=== PATIENT | female | born 1990 | race Caucasian/White ===

== ENCOUNTER 2017-09-10 11:54 | Emergency (ER) | payer OTHER, BC ==
[2017-09-10 12:19] LABS: CONTROL LINE UCG INT CTR LINE PRESENT; URINE PREG TEST POSITIVE (NEGATIVE)
[2017-09-10 12:21] LABS: KETONE, URINE AUTO RFX NEGATIVE (NEGATIVE); LEUKOCYTE ESTERASE UR AUTO RFX NEGATIVE (NEGATIVE); NITRITE, URINE AUTO RFX NEGATIVE (NEGATIVE); RBC, URINE AUTO RFX 2 /HPF (0-3); SPECIFIC GRAVITY UR AUTO RFX 1.014 (1.002-1.035); SQUAM EPITHELIAL CELL UR AURFX 1 /HPF (0-6); WBC, URINE AUTO RFX 2 /HPF (0-3)
[2017-09-10 15:24] LABS: HEMATOCRIT 41.4 % (36.0-47.0); HEMOGLOBIN 13.8 g/dl (12.0-15.5); MEAN CORPUSCULAR HEMOGLOBIN 27.9 pg (27.0-33.0); MEAN CORPUSCULAR HGB CONC 33.3 g/dl (32.0-36.5); MEAN CORPUSCULAR VOLUME 83.6 fl (80.0-96.0); PLATELET COUNT, AUTOMATED 303 10^3/uL (150-450); RED BLOOD COUNT 4.95 10^6/uL (4.00-5.40); RED CELL DISTRIBUTION WIDTH 13.1 % (11.5-14.5); WHITE BLOOD COUNT 11.5 10^3/uL (4.0-10.0)
[2017-09-10 15:41] LABS: CONTROL LINE HCG INT CTR LINE PRESENT; HCG, SERUM QUALITATIVE POSITIVE (NEGATIVE)
[2017-09-10 16:34] LABS: HCG, SERUM QUANTITATIVE 62622 MIU/ML
[2017-09-10 17:47] LABS: CHLAMYDIA DNA AMPLIFICATION NEGATIVE (NEGATIVE); GC DNA AMPLIFICATION NEGATIVE (NEGATIVE)
== END 2017-09-10 17:23 | disposition home or self-care (01) ==
LOC: M ED 11:54
DX: O26.851 Spotting complicating pregnancy, first trimester (principal); Z3A.01 Less than 8 weeks gestation of pregnancy
CPT/HCPCS: 76801

== ENCOUNTER → 2017-12-08 | Outpatient (CLI) | payer OTHER | LOC: M WHC 10:55 | DX: Z34.82 Encounter for supervision of other normal pregnancy, second trimester (principal); Z36.89 Encounter for other specified antenatal screening; Z3A.19 19 weeks gestation of pregnancy | CPT/HCPCS: 76811 ==

== ENCOUNTER → 2018-01-23 | Outpatient (CLI) | payer OTHER ==
[2018-01-23 18:44] LABS: BASO % 0.3 % (0.0-1.0); EOS # 0.1 10^3/uL (0.0-0.50); EOS % 0.8 % (0.0-3.0); HEMOGLOBIN 10.6 g/dl (12.0-15.5); IMMATURE GRANULOCYTE % 0.5 % (0-3.0); LYMPH # 1.8 10^3/uL (1.5-6.5); MEAN CORPUSCULAR HEMOGLOBIN 28.2 pg (27.0-33.0); MEAN CORPUSCULAR HGB CONC 32.1 g/dl (32.0-36.5); MEAN CORPUSCULAR VOLUME 87.8 fl (80.0-96.0); MONO # 0.6 10^3/uL (0.0-0.8); MONO % 4.9 % (0.0-5.0); NEUTROPHILS # 9.4 10^3/uL (1.8-7.7); NEUTROPHILS % 78.5 % (36.0-66.0); PLATELET COUNT, AUTOMATED 288 10^3/uL (150-450); RED BLOOD COUNT 3.76 10^6/uL (4.00-5.40); RED CELL DISTRIBUTION WIDTH 13.4 % (11.5-14.5); WHITE BLOOD COUNT 11.9 10^3/uL (4.0-10.0)
[2018-01-23 18:56] LABS: GLUCOSE CHALLENGE TEST 1 HOUR 132 MG/DL (LESS THAN 140)
== END ==
LOC: M WUC 11:02
DX: Z34.02 Encounter for supervision of normal first pregnancy, second trimester (principal); Z36.89 Encounter for other specified antenatal screening

== ENCOUNTER → 2018-01-27 | Outpatient (CLI) | payer OTHER ==
[2018-01-27 08:43] LABS: GLUCOSE, FASTING 89 MG/DL (LESS THAN 95)
[2018-01-27 09:58] LABS: 1 HR GLUCOSE 151 MG/DL (LESS THAN 180)
[2018-01-27 10:59] LABS: 2 HR GLUCOSE 116 MG/DL (LESS THAN 155)
[2018-01-27 11:44] LABS: 3 HR GLUCOSE 116 MG/DL (LESS THAN 140)
== END ==
LOC: M LAB 07:55
DX: Z34.02 Encounter for supervision of normal first pregnancy, second trimester (principal); Z3A.00 Weeks of gestation of pregnancy not specified
CPT/HCPCS: 82951

== ENCOUNTER → 2018-03-26 | Outpatient (REF) | payer BC, OTHER ==
[~2018-03-26] MED LIST: KEFL500C17 PO; MAPA500T17 PO; PRENTAB31 PO; ZANTTAB PO
== END ==
LOC: M SFHCPLAZ 17:01
PROVIDERS: ATTEND Dermatology
DX: C44.320 Squamous cell carcinoma of skin of unspecified parts of face (principal)

== ENCOUNTER → 2018-04-03 | Outpatient (REF) | payer OTHER ==
[~2018-04-03] MED LIST changes: -MAPA500T17 PO; -ZANTTAB PO
== END ==
LOC: M LAB REF 13:10
PROVIDERS: ATTEND Advanced Practice Midwife
DX: Z34.03 Encounter for supervision of normal first pregnancy, third trimester (principal)

== ENCOUNTER → 2018-04-23 | Outpatient (REF) | payer OTHER ==
[~2018-04-23] MED LIST changes: +COLA100C5 PO; +IBUP-1114 PO; +MAPA500T2 PO; +NUPE1OIN2 TOP; +ZANTTAB PO
[2018-04-23 14:48] LABS: ALT/SGPT 10 U/L (12-78); BILIRUBIN,TOTAL 0.2 MG/DL (0.2-1.0); CREATININE FOR GFR 0.63 MG/DL (0.55-1.30); GLOMERULAR FILTRATION RATE > 60.0 (>60); LDH LACTATE DEHYDROGENASE 158 U/L (84-246); URIC ACID 5.2 MG/DL (2.6-6.0)
[2018-04-23 14:51] LABS: HEMATOCRIT 33.8 % (36.0-47.0); HEMOGLOBIN 10.9 g/dl (12.0-15.5); MEAN CORPUSCULAR HEMOGLOBIN 26.4 pg (27.0-33.0); MEAN CORPUSCULAR HGB CONC 32.2 g/dl (32.0-36.5); MEAN CORPUSCULAR VOLUME 81.8 fl (80.0-96.0); PLATELET COUNT, AUTOMATED 257 10^3/uL (150-450); RED BLOOD COUNT 4.13 10^6/uL (4.00-5.40); WHITE BLOOD COUNT 11.6 10^3/uL (4.0-10.0)
== END ==
LOC: M SMT 13:16
PROVIDERS: ATTEND Advanced Practice Midwife
DX: Z36.89 Encounter for other specified antenatal screening (principal)

== ENCOUNTER → 2018-04-23 | Outpatient (REF) | payer OTHER ==
[2018-04-23 15:38] LABS: TOTAL PROTEIN,RANDOM URINE 26.3 MG/DL (0.0-12.0)
== END ==
LOC: M LAB REF 13:53
PROVIDERS: ATTEND Advanced Practice Midwife
DX: Z36.89 Encounter for other specified antenatal screening (principal)

== ENCOUNTER 2018-04-24 10:57 | Inpatient (IN) | payer OTHER ==
[~2018-04-24] VITALS: Ht 165.1 cm; Wt 104.5 kg
[2018-04-24] VITALS (14 sets, daily range): BP systolic 114–157; BP diastolic 63–87
[~2018-04-24 10:57] MED LIST changes: -COLA100C5 PO; -IBUP-1114 PO; -MAPA500T2 PO; -NUPE1OIN2 TOP; -ZANTTAB PO
[2018-04-24] MEDS ORDERED: ZANTTAB PO (12:24)
[2018-04-24] MEDS ORDERED: MAPA500T2 PO (12:24)
--- NOTE | 2018-04-24 12:26 | HPEPDOC ---
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 BREAST: . ABDOMEN: Gravid and non-tender to touch. FETUS: Is vertex (VTX) by sterile vaginal examination (SVE), fetus is vertex (VTX) by Niraj. HEART RATE: Regular rate and rhythm. LUNGS: Clear to auscultation (CTA). EXTREMITIES: No edema. No clonus. Deep tendon reflexes (DTRs) + 2. Laboratory Data 24H LABS Laboratory Tests 2 04/24/18 11:41: Serology Scanned Report Hepatitis B Testing Pertinent Laboratoy Data Blood Type: A+ RBC Antibody Screen: Negative HIV: Negative Hepatitis B: Negative Hepatitis C: Negative Rapid Plasma Reagin: Nonreactive Rubella: Immune Chlamydia/Gonorrhea: Negative Group B Streptococcus: Positive Quad Screen Test: Declined Glucose Tolerance Test: 132 (3hr 89,151,116,116) Anatomy Ultrasound Ultrasound Date: Dec 08, 2017 Placenta Location: Posterior Normal Anatomy: Yes Placenta Previa: No Estimated Weight (grams): 331 Other Ultrasounds 09/22/17 dating 8w4d Steroid Therapy Steroid Therapy: No Vaginal Examination Dilation: 1cm Effacement: 80% Station: -3 Cervical Consistency: Medium Cervical Position: Posterior Assessment Heart Rate (FHR): 150 Variability: Moderate Accelerations: Positive Tocometer Contractions: Yes Frequency: irregular Strength: palpated as mild Assessment/Plan Assessment Hannah is a 28-year-old (G)1 para (P)0-0-0-0 at 39+2 weeks by 8-week ultrasound. Presents to Labor and Delivery (L&D) per consult Dr Hathaway for induction due to gestational hypertension. Denies regular UC, LOF, bleeding. Fetus is active. Plan Admit and orient per consult Dr Hathaway Caterer'S Aide and consent. Diet: regular. Group B Streptococcus (GBS) positive, treat when in labor. Labs and intravenous (IV) per unit protocol. Counseled on misoprostol, Pitocin and induction of labor (IOL). Saline lock Pt considering epidural Anticipate normal spontaneous delivery (). C-S as appropriate. Jayla Orozco CNM Apr 24, 2018 12:26
[2018-04-24] MEDS ORDERED: miSOPROStol 50 MCG 1/2 TAB (S0191) PO SCH (13:00)
[2018-04-24 13:28] LABS: HEMATOCRIT 33.1 % (36.0-47.0); MEAN CORPUSCULAR HEMOGLOBIN 27.2 pg (27.0-33.0); MEAN CORPUSCULAR HGB CONC 33.2 g/dl (32.0-36.5); MEAN CORPUSCULAR VOLUME 81.9 fl (80.0-96.0); PLATELET COUNT, AUTOMATED 244 10^3/uL (150-450); RED BLOOD COUNT 4.04 10^6/uL (4.00-5.40); WHITE BLOOD COUNT 11.3 10^3/uL (4.0-10.0)
[2018-04-24 13:35] LABS: CREATININE,RANDOM URINE 70.1 MG/DL; TOTAL PROTEIN,RANDOM URINE 19.4 MG/DL (0.0-12.0)
[2018-04-24 13:58] LABS: ALT/SGPT 11 U/L (12-78); BILIRUBIN,TOTAL 0.2 MG/DL (0.2-1.0); CREATININE FOR GFR 0.63 MG/DL (0.55-1.30); GLOMERULAR FILTRATION RATE > 60.0 (>60); LDH LACTATE DEHYDROGENASE 183 U/L (84-246); URIC ACID 5.2 MG/DL (2.6-6.0)
[2018-04-24] MEDS ORDERED: LACTATED RINGER'S 1000 ML IV ONE (16:45)
[2018-04-24] MEDS: LR 1,000 ML IV SCH ×3 (17:48→22:49)
[2018-04-24] MEDS ORDERED: OXYTOCIN DRIP 30 UNITS in APPROPRIATE DILUENT 1 EA IV SCH (18:00)
[2018-04-24] MEDS ORDERED: hydrOXYzine 50 MG TAB PO SCH (21:00)
[2018-04-25] VITALS (42 sets, daily range): BP systolic 105–162; BP diastolic 58–92
[2018-04-25] MEDS ORDERED: PROMETHAZINE INJ 25 MG/ML VIAL (J2550) IV ONE (00:30)
[2018-04-25] MEDS ORDERED: BUTORPHANOL 2 MG/ML INJ (J0595) IV ONE (00:30)
[2018-04-25] MEDS ORDERED: PENICILLIN G POTASSIUM IV 5 MU in D5W MINI-BAG PLUS 100 ML IV STA (01:20)
[2018-04-25] MEDS: LR 1,000 ML IV SCH (01:48)
[2018-04-25] MEDS ORDERED: FENTANYL 2MCG/ML ROPIVACAINE 0.2% IN 0.9% NACL 100ML IVBAG As Ordered ONE (02:04)
--- NOTE | 2018-04-25 03:10 | IPNPDOC ---
Text Note Date of Service The patient was seen on 04/25/18. NOTE Comfortable with epidural SROM clear fluid 0103 Pitocin @ 2mu UC 2-3 minutes apart FH 140, moderate variability, Cat I SVE 9/100/0 Labor down VS,Fishbone, I+O VS, Fishbone, I+O Laboratory Tests 04/24/18 12:14 Red Blood Count 4.04, Mean Corpuscular Volume 81.9, Mean Corpuscular Hemoglobin 27.2, Mean Corpuscular Hemoglobin Concent 33.2, Red Cell Distribution Width 14.8 H, Aspartate Amino Transf (AST/SGOT) 13, Alanine Aminotransferase (ALT/SGPT) 11 L, Lactate Dehydrogenase 183, Total Bilirubin 0.2, Uric Acid 5.2 Vital Signs Date Time Temp Pulse Resp B/P (MAP) Pulse Ox O2 Delivery O2 Flow Rate FiO2 04/25/18 01:20 18 04/25/18 00:47 81 109/63 (78) 04/24/18 23:17 99.0 I&O- Last 24 Hours up to 6 AM 04/25/18 06:00 Output Total 400 ml Balance -400 ml Jayla Orozco CNM Apr 25, 2018 03:10
[2018-04-25] MEDS ORDERED: ePHEDrine SULFATE 25 MG/5 ML(5MG/ML) SYRINGE IV PRN (03:30)
[2018-04-25] MEDS ORDERED: LACTATED RINGER'S 1000 ML IV PRN (03:30)
[2018-04-25] MEDS ORDERED: EPIDURAL/PCA KEYS XX PRN (03:30)
[2018-04-25] MEDS ORDERED: ONDANSETRON 4MG/2ML VIAL (J2405) IV PRN ×2 (03:30→10:15)
[2018-04-25] MEDS ORDERED: EPIDURAL COMMENT XX SCH (03:30)
[2018-04-25] MEDS ORDERED: FENTANYL/ROPIVACAINE/NACL BAG 100 ML EPIDURAL SCH (03:30)
[2018-04-25] MEDS ORDERED: diphenhydrAMINE INJ 50MG/ML VIAL (J1200) IV PRN (03:30)
[2018-04-25] MEDS ORDERED: NALOXONE INJ 0.4 MG/1 ML VIAL (J2310) IV PRN (03:30)
[2018-04-25] MEDS ORDERED: REFRIGERATOR IV KEYS XX PRN (03:30)
[2018-04-25] MEDS: PENICILLIN G POTASSIUM IV 2.5 MU in APPROPRIATE DILUENT 1 EA IV SCH ×2 (05:00→09:00)
--- NOTE | 2018-04-25 06:20 | IPNPDOC ---
Text Note Date of Service The patient was seen on 04/25/18. NOTE Feeling pressure UC 2-4 minutes x 45-60 seconds FH 145, Moderate variability. Attempt to push x1, decel to 100 with slow recovery and poor maternal effort Labor down until stronger urge to push. VS,Fishbone, I+O VS, Fishbone, I+O Laboratory Tests 04/24/18 12:14 Red Blood Count 4.04, Mean Corpuscular Volume 81.9, Mean Corpuscular Hemoglobin 27.2, Mean Corpuscular Hemoglobin Concent 33.2, Red Cell Distribution Width 14.8 H, Aspartate Amino Transf (AST/SGOT) 13, Alanine Aminotransferase (ALT/SGPT) 11 L, Lactate Dehydrogenase 183, Total Bilirubin 0.2, Uric Acid 5.2 Vital Signs Date Time Temp Pulse Resp B/P (MAP) Pulse Ox O2 Delivery O2 Flow Rate FiO2 04/25/18 05:41 77 18 130/77 (94) 04/25/18 04:11 97.7 I&O- Last 24 Hours up to 6 AM 04/25/18 06:00 Output Total 700 ml Balance -700 ml Jayla Orozco CNM Apr 25, 2018 06:20
[2018-04-25] MEDS ORDERED: LR 1,000 ML IV SCH (10:11)
[2018-04-25] MEDS ORDERED: OXYTOCIN DRIP 30 UNITS in APPROPRIATE DILUENT 1 EA IV SCH (10:11)
[2018-04-25] MEDS ORDERED: PROMETHAZINE 25 MG TAB PO PRN (10:15)
[2018-04-25] MEDS ORDERED: DOCUSATE SODIUM 100 MG CAP PO PRN (10:15)
[2018-04-25] MEDS ORDERED: DIBUCAINE 1% OINTMENT 30GM TOP PRN (10:15)
[2018-04-25] MEDS ORDERED: ACETAMINOPHEN 500 MG TAB PO PRN (10:15)
[2018-04-25] MEDS ORDERED: MEASLES,MUMPS,RUBELLA VACCINE INJ (MMR-II) (90707) SC SCH (10:15)
[2018-04-25] MEDS ORDERED: RHOGAM 300 MCG (1500 IU) INJ (J2790) IM SCH (10:15)
--- NOTE | 2018-04-25 10:17 | NUR ---
Delivery note Spontaneous vaginal delivery Estimated gestational age at delivery: 39+2 weeks The active phase and second stage of labor progressed in normal fashion with epidural anesthesia. Patient received Pitocin labor augmentation. She received a full course of GBS prophylaxis. Pt had screened GBS+. The head delivered left occiput anterior and restituted left occiput transverse. A loose nuchal cord was noted. The anterior shoulder delivered with gentle downward guidance and the remainder of the body delivered with ease. The nuchal cord was reduced. Cord clamping was delayed for approximately 1 minute after delivery. After doubly clamping the cord, I cut the cord. The was placed on the patient's chest for immediate bonding. data: Apgars 8 and 9. weight 3210 grams 7 pounds, 1 ounces. Time of delivery: 940. Sex: Male. Joey Bejarano. The third stage of labor was actively managed with a bolus of IV Pitocin (30 units in 500 mL of normal saline). The placenta delivered completely intact with no missing cotyledons at 0945. A three-vessel cord with a central insertion was noted. After delivery of the placenta, the uterine fundus was approximately 2 cm below the umbilicus and firm. IV Pitocin was continued to maintain uterine tone. A normal, low level of uterine bleeding was noted. The cervix, vagina, vulva and perineum were inspected for lacerations. A second degree laceration was noted. This was repaired with 3-0 Vicryl in typical fashion. A left labial laceration was noted and repaired with 4-0 Vicryl. Excellent hemostasis was noted. Estimated blood loss: 300ml. 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 Imer Hathaway D.O., F.David.Antwan.OAbigail.
[2018-04-25] MEDS: IBUPROFEN 800 MG TAB PO PRN ×2 (12:04→20:32)
[2018-04-26 06:00] VITALS: BP 137/72
[2018-04-26] MEDS ORDERED: PRENATAL VITAMINS CHEWABLE TABLET PO SCH (09:00)
--- NOTE | 2018-04-26 10:23 | NUR ---
Day 1 Status post , uncomplicated Subjective Pain is well controlled. Lochia decreasing and minimal. Voiding spontaneously. Tolerating a regular diet. Ambulating without any assistance. Denies any subjective fever/chills/nausea/vomiting/headache/visual changes/shortness of breath/chest pain. Breast feeding. Objective Vitals: Normotensive, normal heart rate, afebrile, adequate urine output. Heart: regular, rate, and rhythm. no murmurs/gallops/rubs Lungs: clear to auscultation bilaterally, no wheezes/crackles/rales/ronchi Abd: soft, nontender, nondistended, uterine fundus is 2cm below umbilicus and firm Ext: no significant edema, nontender, negative Alfreda's bilaterally. Assessment/Plan: day 1. Recovering well. Hemodynamically stable, afebrile, good pain control. -Routine care -Discharge to home today -Routine infectious, fever, pain, and bleeding precautions reviewed Dr. Imer Hathaway D.O., F.A.C.O.G.
[2018-04-26] MEDS ORDERED: IBUP-1114 PO (10:44)
[2018-04-26] MEDS ORDERED: COLA100C5 PO (10:44)
[2018-04-26] MEDS ORDERED: NUPE1OIN2 TOP (10:44)
[2018-04-26] MEDS ORDERED: MAPA500T2 PO (10:44)
== END 2018-04-26 12:50 | disposition home or self-care (01) | DRG 560 ==
LOC: UNDOADMIN 10:57 → M LDI 10:57 → M OBS 04-25 13:05
PROVIDERS: ADMIT Advanced Practice Midwife; ATTEND Obstetrics & Gynecology
PROC: 10E0XZZ Delivery of Products of Conception, External Approach (ICD-10-PCS; principal; 2018-04-25)
PROC: 0KQM0ZZ Repair Perineum Muscle, Open Approach (ICD-10-PCS; 2018-04-25)
PROC: 0HQ9XZZ Repair Perineum Skin, External Approach (ICD-10-PCS; 2018-04-25)
DX: O13.4 Gestational [pregnancy-induced] hypertension without significant proteinuria, complicating childbirth (principal); O99.824 Streptococcus B carrier state complicating childbirth; Z3A.39 39 weeks gestation of pregnancy; O69.81X0 Labor and delivery complicated by cord around neck, without compression, not applicable or unspecified; O70.1 Second degree perineal laceration during delivery; O70.0 First degree perineal laceration during delivery; Z37.0 Single live birth

== ENCOUNTER → 2019-06-17 | Outpatient (REF) | payer OTHER, BC ==
[~2019-06-17] MED LIST changes: +COLA100C5 PO; +IBUP-1114 PO; +MAPA500T2 PO; +NUPE1OIN2 TOP; +ZANT150T40 PO
== END ==
LOC: M LAB REF 12:25
PROVIDERS: ATTEND Dermatology
DX: L98.9 Disorder of the skin and subcutaneous tissue, unspecified (principal)

== ENCOUNTER → 2019-12-22 | Outpatient (CLI) | payer BC ==
[2019-12-22 18:04] LABS: BASO # 0.1 10^3/uL (0.0-0.2); BASO % 0.5 % (0.0-1.0); EOS # 0.1 10^3/uL (0.0-0.5); HEMATOCRIT 35.6 % (36.0-47.0); HEMOGLOBIN 11.8 g/dl (12.0-15.5); LYMPH # 2.4 10^3/uL (1.5-5.0); LYMPH % 22.9 % (24.0-44.0); MEAN CORPUSCULAR HEMOGLOBIN 28.4 pg (27.0-33.0); MEAN CORPUSCULAR HGB CONC 33.1 g/dl (32.0-36.5); MEAN CORPUSCULAR VOLUME 85.6 fl (80.0-96.0); MONO # 0.6 10^3/uL (0.0-0.8); MONO % 5.7 % (0.0-5.0); NEUTROPHILS # 7.3 10^3/uL (1.5-8.5); NEUTROPHILS % 69.5 % (36.0-66.0); PLATELET COUNT, AUTOMATED 272 10^3/uL (150-450); RED BLOOD COUNT 4.16 10^6/uL (4.00-5.40); WHITE BLOOD COUNT 10.4 10^3/uL (4.0-10.0)
[2019-12-22 18:11] LABS: CREATININE,RANDOM URINE 30.4 MG/DL; TOTAL PROTEIN,RANDOM URINE 5.7 MG/DL (0.0-12.0)
[2019-12-22 18:11] LABS: ALT/SGPT 20 U/L (12-78); BILIRUBIN,TOTAL 0.2 MG/DL (0.2-1.0); CREATININE FOR GFR 0.59 MG/DL (0.55-1.30); GLOMERULAR FILTRATION RATE > 60.0 (>60); LDH LACTATE DEHYDROGENASE 141 U/L (84-246); URIC ACID 2.5 MG/DL (2.6-6.0)
[2019-12-22 18:59] LABS: HEPATITIS C VIRUS ABY INDEX 0.2 INDEX (<0.8)
[2019-12-22 19:00] LABS: HIV 1&2 SCREEN CENTAUR NEGATIVE (NEGATIVE)
[2019-12-22 19:30] LABS: CHLAMYDIA DNA AMPLIFICATION NEGATIVE (NEGATIVE); GC DNA AMPLIFICATION NEGATIVE (NEGATIVE)
== END ==
LOC: M LAB 16:24
PROVIDERS: ATTEND Advanced Practice Midwife
DX: Z34.81 Encounter for supervision of other normal pregnancy, first trimester (principal)

== ENCOUNTER → 2020-02-04 | Outpatient (CLI) | payer BC ==
--- NOTE | 2020-02-04 16:32 | REP ---
INDICATION: ANATOMY. Supervision of . COMPARISON: None. TECHNIQUE: Transabdominal obstetric sonographic scanning is performed. FINDINGS: Scanning through the gravid uterus demonstrates a viable single intrauterine gestation in cephalic lie. motion is observed and heart rate is recorded at 146 beats per minute. A anterior placenta is seen, grade 1, without evidence of placenta previa. Amniotic fluid is subjectively normal. Closed cervical length is measured at 3.3 cm transabdominally. No extrauterine abnormality is observed. No anomaly is seen. The following anatomic structures are identified and felt to be sonographically unremarkable: cranium, choroid plexus, cavum, cerebellum and posterior fossa, face and profile, lungs, four-chamber heart with left and right ventricular outflow tract views, diaphragm, left-sided stomach, abdominal wall cord insertion, three-vessel umbilical cord, kidneys and bladder, spine, and upper and lower extremities. Biometry chart: BPD 4.0 cm 18 weeks 1 day Head circumference 15.0 cm 18 weeks 0 days Abdominal circumference 13.6 cm 19 weeks 0 days Femur length 2.8 cm 18 weeks 3 days Humeral length 2.6 cm 18 weeks 2 days HC AC ratio normal 1.10 Cephalic index normal 0.73 Estimated weight 250 g, 0 lb 8 oz, 83rd percentile for 18 weeks 0 days IMPRESSION: Viable single intrauterine gestation at 18 weeks 3 days by today's composite sonographic criteria. ANDREE by today's sonography July 04, 2020. No complication identified. anatomic survey is felt to be complete. <Electronically signed by Zeeshan Armando > 02/04/20 [id number]
== END ==
LOC: M WHC 11:03
PROVIDERS: ATTEND Obstetrics & Gynecology
DX: Z34.82 Encounter for supervision of other normal pregnancy, second trimester (principal); Z36.89 Encounter for other specified antenatal screening; Z3A.18 18 weeks gestation of pregnancy

== ENCOUNTER → 2020-04-17 | Outpatient (CLI) | payer BC ==
[2020-04-17 14:04] LABS: HEMATOCRIT 35.1 % (36.0-47.0); HEMOGLOBIN 11.6 g/dl (12.0-15.5); MEAN CORPUSCULAR HEMOGLOBIN 28.4 pg (27.0-33.0); MEAN CORPUSCULAR VOLUME 85.8 fl (80.0-96.0); PLATELET COUNT, AUTOMATED 248 10^3/uL (150-450); RED BLOOD COUNT 4.09 10^6/uL (4.00-5.40); WHITE BLOOD COUNT 12.1 10^3/uL (4.0-10.0)
== END ==
LOC: M LAB 12:20
PROVIDERS: ATTEND Advanced Practice Midwife
DX: Z36.89 Encounter for other specified antenatal screening (principal)

== ENCOUNTER → 2020-05-26 | Outpatient (REF) | payer BC | LOC: M WUC 15:22 | PROVIDERS: ATTEND Physician Assistant | DX: R11.0 Nausea (principal) ==

== ENCOUNTER → 2020-05-31 | Outpatient (REF) | payer BC ==
[2020-05-31 16:31] LABS: HEMATOCRIT 34.5 % (36.0-47.0); HEMOGLOBIN 10.9 g/dl (12.0-15.5); MEAN CORPUSCULAR HEMOGLOBIN 26.7 pg (27.0-33.0); MEAN CORPUSCULAR HGB CONC 31.6 g/dl (32.0-36.5); MEAN CORPUSCULAR VOLUME 84.6 fl (80.0-96.0); PLATELET COUNT, AUTOMATED 240 10^3/uL (150-450); RED BLOOD COUNT 4.08 10^6/uL (4.00-5.40); WHITE BLOOD COUNT 11.8 10^3/uL (4.0-10.0)
[2020-05-31 16:40] LABS: ALT/SGPT 14 U/L (12-78); BILIRUBIN,TOTAL 0.3 MG/DL (0.2-1.0); CREATININE FOR GFR 0.59 MG/DL (0.55-1.30); GLOMERULAR FILTRATION RATE > 60.0 (>60); LDH LACTATE DEHYDROGENASE 148 U/L (84-246); URIC ACID 3.2 MG/DL (2.6-6.0)
[2020-05-31 16:59] LABS: TOTAL PROTEIN,RANDOM URINE 15.1 MG/DL (0.0-12.0)
== END ==
LOC: M PLALAB 13:21
PROVIDERS: ATTEND Advanced Practice Midwife
DX: O13.3 Gestational [pregnancy-induced] hypertension without significant proteinuria, third trimester (principal)

== ENCOUNTER → 2020-06-06 | Outpatient (CLI) | payer BC ==
--- NOTE | 2020-06-07 03:47 | REP ---
INDICATION: GESTATIONAL HYPERTENSION,GROWTH COMPARISON: 02/04/2020 TECHNIQUE: Transabdominal obstetrical ultrasound with color Doppler evaluation. FINDINGS: Examination demonstrates a single live intrauterine in cephalic presentation. motion is identified by technologist. Placenta is noted anterior and grade 1 without evidence for placenta previa or abruption. Amniotic fluid volume is normal. Cervix measures 3.2 cm in length and appears closed.. Gestational age by LMP 35 weeks 4 days with ANDREE 07/07/2020. Gestational age by current measurements 35 weeks 0 days with ANDREE 07/11/2020. FHR equals 138 beats per minute. BPD: 8.5 cm at 34 weeks 3 days HC: 32.0 cm at 36 weeks 0 days AC: 32.4 cm at 36 weeks 2 days FL: 6.6 cm at 34 weeks 0 days HL: 5.9 cm at 34 weeks 0 days HC/AC: 0.99 Estimated weight 2684 grams (45thpercentile). SIGRID: 16.7 cm IMPRESSION: Single live advanced gestation in cephalic presentation demonstrating appropriate estimated weight and growth. <Electronically signed by Blair Lawrence > 06/07/20 [id number]
== END ==
LOC: M WHC 14:01
PROVIDERS: ATTEND Obstetrics & Gynecology
DX: O13.3 Gestational [pregnancy-induced] hypertension without significant proteinuria, third trimester (principal)

== ENCOUNTER → 2020-06-09 | Outpatient (REF) | payer BC | LOC: M SFHCWAGY 13:30 | PROVIDERS: ATTEND Obstetrics & Gynecology | DX: O13.9 Gestational [pregnancy-induced] hypertension without significant proteinuria, unspecified trimester (principal); Z3A.00 Weeks of gestation of pregnancy not specified ==

== ENCOUNTER → 2020-06-15 | Outpatient (REF) | payer BC | LOC: M LAB REF 13:54 | PROVIDERS: ATTEND Dermatology | DX: D49.2 Neoplasm of unspecified behavior of bone, soft tissue, and skin (principal) ==

== ENCOUNTER 2020-06-23 08:10 | Inpatient (IN) | payer BC ==
[2020-06-23] VITALS (19 sets, daily range): BP systolic 98–138; BP diastolic 53–84
[~2020-06-23] VITALS: Ht 165.1 cm; Wt 102.1 kg
[2020-06-23] MEDS ORDERED: PREN1TAB14 PO (08:36)
[2020-06-23] MEDS ORDERED: FIOR1CAP PO (08:36)
[2020-06-23] MEDS ORDERED: LACTATED RINGER'S 1000 ML IV STA (09:12)
[2020-06-23] MEDS ORDERED: miSOPROStol 25MCG 1/4 TABLET PO ONE (09:15)
--- NOTE | 2020-06-23 09:33 | HPEPDOC ---
Obstetrical History & Physical General Date of Admission Jun 23, 2020 at 08:10 History of Present Illness Chief Complaint: Induction of labor (gestational hypertension) Information Provided By: Patient Age: 30 : 2 Term: 1 Pre-term: 0 Abortions: 0 Livin Care Care: Good Care Dating Final EDC: Jul 07, 2020 Final EDC by: LMP EGA at Admission: 38 Antepartum Course Admission Weight (lbs.): 223.6 Past Medical History Past Obstetrical History : Past Obstetrical History: Primgravida (2019) Type of Delivery: Spontaneous Vaginal Del. 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 Past Medical History Medical History GHTN, double L ureter, migraines, hidradenitis, herniated discs, sciatica Surgical History: Tonsilectomy, Other (ureter surgery, MOHS procedure) Family History Significant Family History: Cancer (skin, bladder), Hypertension, Other (celiac disease, hashimotos thyroiditis, neural tube defect) Social History Marital Status: Family situation: Spouse/partner home Psychosocial History: No pertinent psych hx * Smoker: non-smoker Alcohol: Denies Drugs: denies Abuse Violence Screening Have you been hit/kicked/slapp: No Have you been sexually assault: No Imunizations Tdap status: current Allergies Coded Allergies: No Known Allergies (Verified , 10/25/02) Medications Scheduled Vits96/Iron Fum/Folic ( Tablet) 1 Each Tablet, 1 TAB PO DAILY Scheduled PRN Acetaminophen (Mapap) 500 Mg Tab, 1,000 MG PO Q6HP PRN for MILD PAIN (PS 1-4) Butalb/Acetaminophen/Caffeine (Fioricet 50-300-40 mg Capsule) 1 Each Capsule, 2 CAP PO PRN PRN for HEADACHE Physical Examination Physical Examination GENERAL: Alert and oriented times three. BREAST: . ABDOMEN: Gravid and non-tender to touch. FETUS: Is vertex (VTX) by sterile vaginal examination (SVE), fetus is vertex (VTX) by Niraj.EFW 7.5-8# HEART RATE: Regular rate and rhythm. LUNGS: Clear to auscultation (CTA). EXTREMITIES: No edema. No clonus. Deep tendon reflexes (DTRs) + 2. Laboratory Data 24H LABS Laboratory Tests 2 06/23/20 08:22: Serology Scanned Report Hepatitis B Testing Pertinent Laboratoy Data Blood Type: A+ RBC Antibody Screen: Negative HIV: Negative Hepatitis B: Negative Hepatitis C: Negative Rapid Plasma Reagin: Nonreactive Rubella: Immune Chlamydia/Gonorrhea: Negative Group B Streptococcus: Negative Glucose Tolerance Test: 102 Anatomy Ultrasound Ultrasound Date: Feb 04, 2020 Placenta Location: Anterior Normal Anatomy: Yes Placenta Previa: No Estimated Weight (grams): 250 (83%) Other Ultrasounds 06/06/20 Cephalic, no previa. Normal fluid. EGA 35w0d. EFW 2684gm, 45% Steroid Therapy Steroid Therapy: No Vaginal Examination Dilation: 2cm Effacement: 50% Station: -3 Cervical Consistency: Soft Cervical Position: Posterior Presentation: Cephalic presentation Assessment Heart Rate (FHR): 145 Variability: Moderate Accelerations: Positive Decelerations: None Tocometer Contractions: Yes Frequency: irregular Duration: less than 60 seconds Strength: palpated as mild Assessment/Plan Assessment Aldair a 30-year-old (G)2 para (P)1-0-0-1 at 38+0 weeks gestation. Presents to Labor and Delivery (L&D) for induction of labor due to gestational hypertension. Reports good movement and mild cramping. Denies loss of fluid, bleeding or regular contractions. Plan Admit and orient. Cardiac Surgeon and consent per consult Dr Davey Diet: regular Group B Streptococcus (GBS) negative. Labs and intravenous (IV) per unit protocol. Counseled on misoprostol, Pitocin and induction of labor (IOL). Lactated Ringers (LR): Bolus 500 mL, then saline lock. Plans an epidural for labor coping Anticipate normal spontaneous delivery (). C-S as appropriate. Jayla Orozco CNM Jun 23, 2020 09:23
[2020-06-23 10:09] LABS: HEMATOCRIT 32.4 % (36.0-47.0); HEMOGLOBIN 10.2 g/dl (12.0-15.5); MEAN CORPUSCULAR HEMOGLOBIN 26.6 pg (27.0-33.0); MEAN CORPUSCULAR HGB CONC 31.5 g/dl (32.0-36.5); MEAN CORPUSCULAR VOLUME 84.4 fl (80.0-96.0); PLATELET COUNT, AUTOMATED 204 10^3/uL (150-450); RED BLOOD COUNT 3.84 10^6/uL (4.00-5.40); WHITE BLOOD COUNT 8.4 10^3/uL (4.0-10.0)
[2020-06-23 10:58] LABS: TOTAL PROTEIN,RANDOM URINE 39.1 MG/DL (0.0-12.0)
[2020-06-23 11:11] LABS: ALT/SGPT 12 U/L (12-78); BILIRUBIN,TOTAL 0.3 MG/DL (0.2-1.0); CREATININE FOR GFR 0.58 MG/DL (0.55-1.30); GLOMERULAR FILTRATION RATE > 60.0 (>60); LDH LACTATE DEHYDROGENASE 156 U/L (84-246); URIC ACID 4.3 MG/DL (2.6-6.0)
[2020-06-23] MEDS ORDERED: miSOPROStol 25MCG 1/4 TABLET PO SCH (14:00)
[2020-06-23] MEDS ORDERED: miSOPROStol 50MCG 1/2 TABLET PO SCH (14:00)
[2020-06-23] MEDS: ACETAMINOPHEN 500 MG TAB PO PRN ×2 (14:45→21:12)
[2020-06-23] MEDS ORDERED: OXYTOCIN DRIP 30 UNITS in IV 1 EA IV SCH (20:35)
--- NOTE | 2020-06-23 20:36 | IPNPDOC ---
Text Note Date of Service The patient was seen on 06/23/20. NOTE Progress Reports feeling crampy. Denies LOF, bleeding Cat I tracing with irregular mild UC SVE 2-3/80/-2, midposition, light bloody show Repeat CBC ordered. Start pitocin. Epidural when ready. Anticipate NSVB Dr Davey aware of patient status. VS,Fishbone, I+O VS, Fishbone, I+O Laboratory Tests 06/23/20 09:45 Vital Signs Date Time Temp Pulse Resp B/P (MAP) Pulse Ox O2 Delivery O2 Flow Rate FiO2 06/23/20 18:27 97.8 84 18 124/77 (93) 06/23/20 08:52 97 Jayla Orozco CNM Jun 23, 2020 20:36
[2020-06-23 20:54] LABS: HEMOGLOBIN 10.1 g/dl (12.0-15.5); MEAN CORPUSCULAR HEMOGLOBIN 26.4 pg (27.0-33.0); MEAN CORPUSCULAR HGB CONC 31.6 g/dl (32.0-36.5); MEAN CORPUSCULAR VOLUME 83.8 fl (80.0-96.0); PLATELET COUNT, AUTOMATED 205 10^3/uL (150-450); RED BLOOD COUNT 3.82 10^6/uL (4.00-5.40); WHITE BLOOD COUNT 8.3 10^3/uL (4.0-10.0)
[2020-06-23] MEDS: LR 1,000 ML IV SCH (21:43)
[2020-06-23] MEDS: FIORICET TAB PO PRN (22:48)
[2020-06-24] VITALS (35 sets, daily range): BP systolic 96–141; BP diastolic 52–92
[2020-06-24] MEDS ORDERED: FENTANYL 2MCG/ML ROPIVACAINE 0.2% IN 0.9% NACL 100ML IVBAG As Ordered ONE (03:30)
[2020-06-24] MEDS ORDERED: FENTANYL/ROPIVACAINE/NACL BAG 100 ML EPIDURAL SCH (04:07)
[2020-06-24] MEDS ORDERED: EPIDURAL/PCA KEYS XX PRN (04:07)
[2020-06-24] MEDS ORDERED: LACTATED RINGER'S 1000 ML IV PRN (04:07)
[2020-06-24] MEDS ORDERED: REFRIGERATOR IV KEYS XX PRN (04:07)
[2020-06-24] MEDS ORDERED: diphenhydrAMINE 50MG/ML VIAL (J1200) IV PRN (04:07)
[2020-06-24] MEDS ORDERED: EPIDURAL COMMENT XX SCH (04:07)
[2020-06-24] MEDS ORDERED: NALOXONE INJ 0.4MG/1ML VIAL (J2310 PER 1MG) IV PRN (04:07)
[2020-06-24] MEDS ORDERED: ONDANSETRON 4MG/2ML VIAL IV PRN (04:07)
[2020-06-24] MEDS: FIORICET TAB PO PRN (04:41)
[2020-06-24] MEDS: ePHEDrine SULFATE 25 MG/5 ML(5MG/ML) SYRINGE IV PRN ×2 (05:25→05:39)
--- NOTE | 2020-06-24 05:40 | IPNPDOC ---
Text Note Date of Service The patient was seen on 06/24/20. NOTE Progress Comfortable with epidural Prolonged decel over 7 minutes to 60's with slow recovery followed by recurrent late decels Pitocin off. O2 via mask. IV bolus Dr Davey requested to attend. VS,Sherinee, I+O VS, Fishbone, I+O Laboratory Tests 06/23/20 09:45 06/23/20 20:44 Vital Signs Date Time Temp Pulse Resp B/P (MAP) Pulse Ox O2 Delivery O2 Flow Rate FiO2 06/24/20 04:41 18 Room Air 06/24/20 03:01 74 133/82 (99) 06/23/20 18:27 97.8 06/23/20 08:52 97 I&O- Last 24 Hours up to 6 AM 06/24/20 06:00 Intake Total 2000 ml Output Total 1050 ml Balance 950 ml Jayla Orozco CNM Jun 24, 2020 05:40
--- NOTE | 2020-06-24 06:12 | IPNPDOC ---
Text Note Date of Service The patient was seen on 06/24/20. NOTE Progress Dr Davey in house, evaluated strip, now Cat I with accelerations Per consult, pitocin resumed at 4mu SVE /-2, AROM moderate amount clear fluid Continue to observe closely. VS,Fishbone, I+O VS, Fishbone, I+O Laboratory Tests 06/23/20 09:45 06/23/20 20:44 Vital Signs Date Time Temp Pulse Resp B/P (MAP) Pulse Ox O2 Delivery O2 Flow Rate FiO2 06/24/20 05:47 75 18 107/60 (76) 06/24/20 04:41 Room Air 06/23/20 18:27 97.8 06/23/20 08:52 97 I&O- Last 24 Hours up to 6 AM 06/24/20 06:00 Intake Total 2000 ml Output Total 1050 ml Balance 950 ml Jayla Orozco CNM Jun 24, 2020 06:12
[2020-06-24] MEDS: LR 1,000 ML IV SCH (06:23)
[2020-06-24] MEDS ORDERED: IBUPROFEN 600MG TAB PO PRN (09:35)
[2020-06-24] MEDS ORDERED: MOM 30ML SUSPENSION UDC PO PRN (09:35)
[2020-06-24] MEDS ORDERED: METHYLERGONOVINE MALEATE 0.2 MG TAB PO PRN (09:35)
[2020-06-24] MEDS ORDERED: RHOGAM 300 MCG (1500 IU) INJ (J2790) IM SCH (09:35)
[2020-06-24] MEDS ORDERED: MEASLES,MUMPS,RUBELLA VACCINE INJ (MMR-II) (90707) SC SCH (09:35)
[2020-06-24] MEDS ORDERED: ANUSOL HC CREAM 30GM TOP PRN (09:35)
[2020-06-24] MEDS ORDERED: ACETAMINOPHEN 500 MG TAB PO PRN (09:35)
[2020-06-24] MEDS ORDERED: ACETAMINOPHEN TAB 650MG DOSE (2X325MG) PO PRN (09:35)
[2020-06-24] MEDS ORDERED: DOCUSATE SODIUM 100MG CAPSULE PO PRN (09:35)
[2020-06-24] MEDS ORDERED: OXYTOCIN DRIP 30 UNITS in IV 1 EA IV SCH (09:45)
[2020-06-24] MEDS ORDERED: OXYTOCIN DRIP 30 UNITS in IV 1 EA IV ONE (12:15)
[2020-06-24] MEDS ORDERED: OXYTOCIN 30 UNITS IN 0.9% NaCl 500ML IV BAG (J2590) As Ordered ONE (12:22)
[2020-06-24] MEDS: DIBUCAINE 1% OINTMENT 30GM TOP PRN (12:41)
[2020-06-24] MEDS: IBUPROFEN 800 MG TAB PO PRN (12:41)
[2020-06-25] MEDS: IBUPROFEN 800 MG TAB PO PRN (04:23)
[2020-06-25 06:00] VITALS: BP 130/80
[2020-06-25] MEDS ORDERED: PRENATAL VITAMINS CHEWABLE TABLET PO SCH (09:00)
[2020-06-25] MEDS: DIBUCAINE 1% OINTMENT 30GM TOP PRN (12:14)
--- NOTE | 2020-07-17 12:12 | DNPDOC ---
[facility] Delivery Note Delivery Note DATE OF DELIVERY: PREDELIVERY DIAGNOSIS: -/7 weeks' gestation and labor. POST DELIVERY DIAGNOSIS: Delivered. PROCEDURE: [Spontaneous vaginal delivery/ section]. SALES SERVICE REP: ANESTHESIA: . ESTIMATED BLOOD LOSS: mL. FINDINGS: pound ounce , Score /, nuchal cord times . DELIVERY SUMMARY: Patient is a -year-old now para --- who was admitted to labor and delivery for as hours on . GIORGIO HOFF MD. Jul 17, 2020 12:12
--- NOTE | 2020-07-17 12:13 | DNPDOC ---
[facility] Delivery Note Delivery Note DATE OF DELIVERY: 06/24/2020 TIME OF : 0910 GENDER: Female APGARS: 9 and 9. WEIGHT: 3200 g or 7 lbs. 1 oz. LACERATIONS: Second-degree midline laceration ANESTHESIA: epidural ESTIMATED BLOOD LOSS: 200 ml COUNTS: 5 laparotomy sponges accounted for prior to after delivery. 1 sharps removed from delivery field. DELIVERY NOTE: On at 0 910 a 30-year-old 2 now para 2 had a spontaneous vaginal delivery of a liveborn female infant Apgars 9 and 9 weight was 3200 g or 7 lbs. 1 oz. Head was delivered occiput anterior (OA), fol lowed by delivery of the shoulders and corpus. was handed to mom with a good cry. Cord was clamped times two and was cut by support person under my direction. Placenta was then drained and delivered grossly intact. A premixed bag of 500 mL of normal saline with 30 units of Pitocin was then bolused along with uterine massage until the uterus was firm. On inspection there was a 2MLL that was repaired with 3-0 Vicryl. On reinspection, cervix, vagina, perineum was grossly intact and hemostatic. Mom and baby in recovery on stable condition. GIORGIO HOFF MD. Jun 24, 2020 11:03
== END 2020-06-25 13:00 | disposition home or self-care (01) | DRG 560 ==
LOC: M LDI 08:10 → M OBS 06-24 12:02
PROVIDERS: ADMIT Advanced Practice Midwife; ATTEND Advanced Practice Midwife
PROC: 10E0XZZ Delivery of Products of Conception, External Approach (ICD-10-PCS; principal; 2020-06-24)
PROC: 0KQM0ZZ Repair Perineum Muscle, Open Approach (ICD-10-PCS; 2020-06-24)
DX: O13.4 Gestational [pregnancy-induced] hypertension without significant proteinuria, complicating childbirth (principal); O70.1 Second degree perineal laceration during delivery; Z37.0 Single live birth; Z3A.38 38 weeks gestation of pregnancy

== ENCOUNTER → 2020-10-03 | Outpatient (REF) | payer BC ==
[~2020-10-03] MED LIST changes: +FIOR1CAP PO; +PREN1TAB14 PO
== END ==
LOC: M LAB REF 14:55
PROVIDERS: ATTEND Physician Assistant
DX: Z53.9 Procedure and treatment not carried out, unspecified reason (principal); D49.2 Neoplasm of unspecified behavior of bone, soft tissue, and skin

== ENCOUNTER → 2020-10-05 | Outpatient (REF) | payer BC | LOC: M LAB REF 13:43 | PROVIDERS: ATTEND Physician Assistant | DX: D49.2 Neoplasm of unspecified behavior of bone, soft tissue, and skin (principal) ==

== ENCOUNTER → 2020-11-10 | Outpatient (REF) | payer BC | LOC: M SFHCWAGY 18:42 | PROVIDERS: ATTEND Obstetrics & Gynecology | DX: Z12.4 Encounter for screening for malignant neoplasm of cervix (principal) | CPT/HCPCS: 87624; G0123 ==

== ENCOUNTER → 2020-12-22 | Outpatient (CLI) | payer OTHER ==
[2020-12-22 11:54] LABS: ALBUMIN 3.7 GM/DL (3.2-5.2); ALT/SGPT 38 U/L (12-78); BILIRUBIN,TOTAL 0.4 MG/DL (0.2-1.0); BLOOD UREA NITROGEN 9 MG/DL (7-18); CALCIUM LEVEL 8.9 MG/DL (8.5-10.1); CARBON DIOXIDE LEVEL 24 MEQ/L (21-32); CHLORIDE LEVEL 107 MEQ/L (98-107); CHOLESTEROL LEVEL 189 MG/DL (<200); CHOLESTEROL RISK RATIO 4.609 (<5); CREATININE FOR GFR 0.76 MG/DL (0.55-1.30); GLOMERULAR FILTRATION RATE > 60.0 (>60); GLUCOSE, FASTING 92 MG/DL (70-100); HDL CHOLESTEROL 41 MG/DL (>40); LDL CHOLESTEROL 112 MG/DL (<100); NON-HDL-C 148 MG/DL; POTASSIUM SERUM 4.3 MEQ/L (3.5-5.1); SODIUM LEVEL 139 MEQ/L (136-145); TOTAL PROTEIN 7.3 GM/DL (6.4-8.2); TRIGLYCERIDES LEVEL 180 MG/DL (<150)
== END ==
LOC: M WUC 09:59
PROVIDERS: ATTEND Family Medicine
DX: Z13.220 Encounter for screening for lipoid disorders (principal); Z13.1 Encounter for screening for diabetes mellitus; Z83.49 Family history of other endocrine, nutritional and metabolic diseases

== ENCOUNTER → 2021-07-03 | Outpatient (CLI) | payer OTHER ==
[2021-07-03 19:20] LABS: HEMATOCRIT 36.7 % (36.0-47.0); HEMOGLOBIN 11.8 g/dl (12.0-15.5); MEAN CORPUSCULAR HEMOGLOBIN 27.4 pg (27.0-33.0); MEAN CORPUSCULAR HGB CONC 32.2 g/dl (32.0-36.5); MEAN CORPUSCULAR VOLUME 85.3 fl (80.0-96.0); PLATELET COUNT, AUTOMATED 257 10^3/uL (150-450); WHITE BLOOD COUNT 8.9 10^3/uL (4.0-10.0)
== END ==
LOC: M WUC 15:20
PROVIDERS: ATTEND Family Medicine
DX: N92.0 Excessive and frequent menstruation with regular cycle (principal)

== ENCOUNTER → 2021-07-17 | Outpatient (CLI) | payer OTHER ==
[2021-07-17 18:34] LABS: HEMATOCRIT 37.4 % (36.0-47.0); HEMOGLOBIN 12.2 g/dl (12.0-15.5); MEAN CORPUSCULAR HEMOGLOBIN 27.5 pg (27.0-33.0); MEAN CORPUSCULAR HGB CONC 32.6 g/dl (32.0-36.5); MEAN CORPUSCULAR VOLUME 84.4 fl (80.0-96.0); PLATELET COUNT, AUTOMATED 270 10^3/uL (150-450); RED BLOOD COUNT 4.43 10^6/uL (4.00-5.40); WHITE BLOOD COUNT 9.8 10^3/uL (4.0-10.0)
[2021-07-17 19:07] LABS: PERCENT SATURATION 16.1 % (13.2-45.0)
== END ==
LOC: M PLALAB 15:30
PROVIDERS: ATTEND Family Medicine
DX: D64.9 Anemia, unspecified (principal)

== ENCOUNTER → 2021-10-23 | Outpatient (REF) | payer OTHER ==
[2021-10-23 15:37] LABS: BASO % 0.5 % (0.0-1.0); EOS # 0.1 10^3/uL (0.0-0.5); EOS % 0.9 % (0.0-3.0); HEMOGLOBIN 13.6 g/dl (12.0-15.5); LYMPH # 2.4 10^3/uL (1.5-5.0); LYMPH % 28.3 % (24.0-44.0); MEAN CORPUSCULAR HEMOGLOBIN 27.5 pg (27.0-33.0); MEAN CORPUSCULAR HGB CONC 32.4 g/dl (32.0-36.5); MEAN CORPUSCULAR VOLUME 84.8 fl (80.0-96.0); MONO # 0.5 10^3/uL (0.0-0.8); MONO % 6.3 % (2.0-8.0); NEUTROPHILS # 5.5 10^3/uL (1.5-8.5); NEUTROPHILS % 63.8 % (36.0-66.0); PLATELET COUNT, AUTOMATED 282 10^3/uL (150-450); RED BLOOD COUNT 4.95 10^6/uL (4.00-5.40); WHITE BLOOD COUNT 8.6 10^3/uL (4.0-10.0)
[2021-10-23 15:40] LABS: INR 0.97; PROTHROMBIN TIME 13.3 SECONDS (12.7-14.5)
[2021-10-23 15:41] LABS: PARTIAL THROMBOPLASTIN TIME 30.4 SECONDS (25.9-37.0)
[2021-10-23 15:49] LABS: ALBUMIN 4.2 GM/DL (3.2-5.2); ALT/SGPT 19 U/L (12-78); BILIRUBIN,TOTAL 0.8 MG/DL (0.2-1.0); BLOOD UREA NITROGEN 10 MG/DL (7-18); CARBON DIOXIDE LEVEL 25 MEQ/L (21-32); CHLORIDE LEVEL 106 MEQ/L (98-107); CREATININE FOR GFR 0.75 MG/DL (0.55-1.30); FERRITIN 16 NG/ML (8-252); GLOMERULAR FILTRATION RATE > 60.0 (>60); GLUCOSE, FASTING 86 MG/DL (70-100); SODIUM LEVEL 137 MEQ/L (136-145); TOTAL PROTEIN 7.7 GM/DL (6.4-8.2)
== END ==
LOC: M SFHCPLAZ 15:04
PROVIDERS: ATTEND Family Medicine
DX: G43.109 Migraine with aura, not intractable, without status migrainosus (principal); Z01.818 Encounter for other preprocedural examination

== ENCOUNTER → 2021-11-08 | Outpatient (CLI) | payer OTHER ==
[~2021-11-08] MED LIST changes: +ZOLM5TAB20 PO
== END ==
LOC: M LABSMTC 09:49
PROVIDERS: ATTEND Anesthesiology
DX: Z01.818 Encounter for other preprocedural examination (principal); Z11.52 Encounter for screening for COVID-19

== ENCOUNTER 2021-11-13 06:18 | Observation (INO) | payer OTHER ==
[~2021-11-13] VITALS: Ht 165.1 cm; Wt 88.0 kg
[2021-11-13] VITALS (8 sets, daily range): BP systolic 111–137; BP diastolic 65–84; O2SAT 98
[2021-11-13] MEDS ORDERED: ceFAZolin SOD 2 GM in IV 1 EA IV ONE (07:00)
[2021-11-13] MEDS ORDERED: LR 1,000 ML IV SCH ×2 (07:00→11:25)
[2021-11-13] MEDS ORDERED: HEPARIN SOD (PORCINE) 5000UNITS/ML 1ML VIAL/SYRINGE SQ ONE (07:00)
[2021-11-13] MEDS ORDERED: SCOPOLAMINE 1MG TRANSDERMAL PATCH TOP ONE (07:05)
[2021-11-13] MEDS ORDERED: GENTAMICIN SULF 80MG/2ML VIAL As Ordered ONE (07:18)
[2021-11-13] MEDS ORDERED: BUPIVACAINE HCL 0.25% 10ML VIAL As Ordered ONE (07:18)
[2021-11-13] MEDS ORDERED: BUPIVACAINE LIPOSOME/PF 1.3% 20ML VIAL (13.3MG/ML)(EXPAREL) As Ordered ONE (07:19)
[2021-11-13] MEDS ORDERED: ROCURONIUM BROMIDE 50 MG/5 ML VIAL As Ordered ONE ×2 (07:26→08:35)
[2021-11-13] MEDS ORDERED: dexameTHASONE 4 MG/ML 1ML VIAL (J1100 PER 1MG) As Ordered ONE (07:26)
[2021-11-13] MEDS ORDERED: fentaNYL 250 MCG/5 ML INJECTION As Ordered ONE (07:26)
[2021-11-13] MEDS ORDERED: LIDOCAINE 2% 100MG/5ML SDV (FOR ANES.) As Ordered ONE (07:26)
[2021-11-13] MEDS ORDERED: MIDAZOLAM INJ 2MG/2ML VIAL (J2250 PER 1MG) As Ordered ONE (07:28)
[2021-11-13] MEDS ORDERED: diphenhydrAMINE 50MG/ML VIAL (J1200) As Ordered ONE (08:14)
[2021-11-13] MEDS ORDERED: SUGAMMADEX SODIUM 500 MG/5 ML VIAL (BRIDION) As Ordered ONE (08:38)
[2021-11-13] MEDS ORDERED: HYDROmorphone HCL 2MG/ML 1ML VIAL As Ordered ONE (08:38)
[2021-11-13] MEDS ORDERED: ACETAMINOPHEN 1000MG 100ML IV BTL (OFIRMEV) (J0131 PER 10MG) As Ordered ONE (08:38)
[2021-11-13] MEDS ORDERED: METOCLOPRAMIDE INJ 10MG/2ML VIAL (J2765 PER 1) As Ordered ONE (08:58)
[2021-11-13] MEDS ORDERED: HYDROMORPHONE HCL 0.5 MG/ 0.5 ML SYRINGE (J1170 PER 1) IV PRN (11:25)
[2021-11-13] MEDS ORDERED: ONDANSETRON 4MG 2ML VIAL IV PRN ×2 (11:25→11:35)
[2021-11-13] MEDS ORDERED: oxyCODONE 5MG TAB PO PRN (11:25)
[2021-11-13] MEDS ORDERED: fentaNYL 100 MCG/2 ML INJECTION IV PRN (11:25)
[2021-11-13] MEDS ORDERED: METOCLOPRAMIDE INJ 10MG/2ML VIAL (J2765 PER 1) IV PRN (11:25)
[2021-11-13] MEDS ORDERED: PERCOCET 5MG/325MG TAB PO PRN (11:35)
[2021-11-13] MEDS: LR 1,000 ML IV SCH ×2 (11:35→17:09)
[2021-11-13] MEDS ORDERED: ACETAMINOPHEN TAB 650MG DOSE (2X325MG) PO PRN (11:35)
[2021-11-13] MEDS: traMADol 50 MG TAB PO PRN ×2 (13:52→21:22)
[2021-11-13] MEDS: ceFAZolin SOD 1 GM in D5W MINI-BAG PLUS 50 ML IV SCH ×2 (16:20→23:22)
[2021-11-13] MEDS ORDERED: FAMOTIDINE 20MG/2ML VIAL IVP ONE (19:00)
[2021-11-14] VITALS: BP 119/70; O2SAT 98
[2021-11-14] MEDS: traMADol 50 MG TAB PO PRN ×2 (03:37→09:03)
[2021-11-14 04:00] VITALS: BP 119/70; O2SAT 98
[2021-11-14 07:30] VITALS: BP 132/76
[2021-11-14] MEDS: ceFAZolin SOD 1 GM in D5W MINI-BAG PLUS 50 ML IV SCH (07:43)
[2021-11-14] MEDS ORDERED: TRAM50TA2 PO (10:21)
== END 2021-11-14 12:30 | disposition home or self-care (01) ==
LOC: M SDC 06:18 → M PED 06:19 → M SDC 11:34 → M PED 12:20
PROVIDERS: ADMIT Plastic Surgery Surgery of the Hand; ATTEND Plastic Surgery Surgery of the Hand
DX: N62 Hypertrophy of breast (principal); N64.81 Ptosis of breast; G43.909 Migraine, unspecified, not intractable, without status migrainosus; Z79.899 Other long term (current) drug therapy
CPT/HCPCS: 19318; 81025; 88305; 96361; 96365; 96366; 96375; 96376; C9290; J0131; J0690; J1100; J1170; J1200; J1580; J1644; J2250; J2405; J2765; J3010

== ENCOUNTER → 2022-04-02 | Outpatient (CLI) | payer OTHER ==
[~2022-04-02] MED LIST changes: +TRAM50TA2 PO
== END ==
LOC: M WHC 11:33
PROVIDERS: ATTEND Physician Assistant
DX: N92.0 Excessive and frequent menstruation with regular cycle (principal)

== ENCOUNTER → 2022-06-25 | Outpatient (CLI) | payer OTHER ==
[2022-06-26 11:06] LABS: FREE T3 3.4 PG/ML (2.3-4.2)
[2022-06-26 11:07] LABS: FREE T4 1.09 NG/DL (0.89-1.76); THYROID STIMULATING HORMONE 2.706 uIU/ML (0.55-4.78)
[2022-06-26 11:40] LABS: HEMOGLOBIN A1c 5.5 % (4.0-6.0)
== END ==
LOC: M PLALAB 16:25
PROVIDERS: ATTEND Physician Assistant
DX: E66.9 Obesity, unspecified (principal)

== ENCOUNTER → 2022-10-10 | Outpatient (REF) | payer OTHER | LOC: M LAB REF 16:23 | PROVIDERS: ATTEND Physician Assistant | DX: R30.0 Dysuria (principal) ==

== ENCOUNTER → 2023-02-10 | Outpatient (REF) | payer OTHER | LOC: M SFHCDERM 14:24 | PROVIDERS: ATTEND Physician Assistant | DX: D22.5 Melanocytic nevi of trunk (principal) ==

== ENCOUNTER → 2023-04-08 | Outpatient (CLI) | payer OTHER | LOC: M SOG 08:00 | PROVIDERS: ATTEND Physician Assistant | DX: M25.512 Pain in left shoulder (principal); M75.32 Calcific tendinitis of left shoulder ==

== ENCOUNTER → 2023-07-03 | Outpatient (REF) | payer OTHER | LOC: M SFHCPLAZ 10:02 | PROVIDERS: ATTEND Physician Assistant | DX: R10.9 Unspecified abdominal pain (principal) ==

== ENCOUNTER → 2023-07-04 | Outpatient (CLI) | payer OTHER | LOC: M WHC 08:11 | PROVIDERS: ATTEND Physician Assistant | DX: R10.9 Unspecified abdominal pain (principal); R39.15 Urgency of urination ==

== ENCOUNTER → 2023-07-09 | Outpatient (CLI) | payer OTHER ==
[2023-07-09 18:05] LABS: BASO # 0.1 10^3/uL (0.0-0.2); BASO % 0.8 % (0.0-1.0); EOS # 0.2 10^3/uL (0.0-0.5); EOS % 1.9 % (0.0-3.0); HEMATOCRIT 39.5 % (36.0-47.0); HEMOGLOBIN 13.1 g/dl (12.0-15.5); LYMPH # 3.4 10^3/uL (1.5-5.0); LYMPH % 41.3 % (24.0-44.0); MEAN CORPUSCULAR HEMOGLOBIN 28.5 pg (27.0-33.0); MEAN CORPUSCULAR HGB CONC 33.2 g/dl (32.0-36.5); MEAN CORPUSCULAR VOLUME 86.1 fl (80.0-96.0); MONO # 0.6 10^3/uL (0.0-0.8); MONO % 7.1 % (2.0-8.0); NEUTROPHILS % 48.5 % (36.0-66.0); PLATELET COUNT, AUTOMATED 252 10^3/uL (150-450); RED BLOOD COUNT 4.59 10^6/uL (4.00-5.40); WHITE BLOOD COUNT 8.3 10^3/uL (4.0-10.0)
[2023-07-09 18:15] LABS: ERYTHROCYTE SEDIMENTATION RATE 12 mm/hr (0-20)
[2023-07-09 18:26] LABS: C REACTIVE PROTEIN QUANTITATIV < 0.40 MG/DL (<1.0); LIPASE 40 U/L (12-53)
[2023-07-09 18:28] LABS: ALBUMIN 4.1 G/DL (3.2-5.2); ALKALINE PHOSPHATASE 60 U/L (46-116); ALT/SGPT 12 U/L (7.0-40); AST/SGOT 10 U/L (<34); BILIRUBIN,TOTAL 0.4 MG/DL (0.3-1.2); BLOOD UREA NITROGEN 12 MG/DL (9-23); CALCIUM LEVEL 8.9 MG/DL (8.5-10.1); CARBON DIOXIDE LEVEL 25 MMOL/L (20-31); CHLORIDE LEVEL 109 MMOL/L (98-107); CREATININE FOR GFR 0.78 MG/DL (0.55-1.30); GLOMERULAR FILTRATION RATE > 60.0 (>60); GLUCOSE, FASTING 75 MG/DL (60-100); SODIUM LEVEL 140 MMOL/L (136-145); TOTAL PROTEIN 7.2 G/DL (5.7-8.2)
== END ==
LOC: M PLALAB 15:25
PROVIDERS: ATTEND Physician Assistant
DX: M54.9 Dorsalgia, unspecified (principal)

== ENCOUNTER → 2023-07-11 | Outpatient (CLI) | payer OTHER ==
[~2023-07-11] MED LIST changes: +GASTROGRAFIN SOLUTION 30ML ONE; +ISOVUE-370 76% 100ML VIAL ONE
== END ==
LOC: M PLAIMG 11:39
PROVIDERS: ATTEND Physician Assistant
DX: M54.9 Dorsalgia, unspecified (principal); R35.0 Frequency of micturition; R53.81 Other malaise; R39.89 Other symptoms and signs involving the genitourinary system
CPT/HCPCS: 74177; Q9963; Q9967

== ENCOUNTER → 2023-11-25 | Outpatient (REF) | payer OTHER ==
[~2023-11-25] MED LIST changes: +CEFD1CAP9 PO; +FLUC200T4; -GASTROGRAFIN SOLUTION 30ML ONE; -ISOVUE-370 76% 100ML VIAL ONE; +NITR100C2; +PHEN-501
[2023-11-25 13:44] LABS: APPEARANCE, URINE HAZY (CLEAR); BACTERIA, URINE AUTO NEGATIVE (NEGATIVE); BILIRUBIN, URINE AUTO NEGATIVE (NEGATIVE); BLOOD, URINE BLOOD 2+ (NEGATIVE); COLOR, URINE STRAW (YELLOW); GLUCOSE, URINE (UA) AUTO NEGATIVE (NEGATIVE); KETONE, URINE AUTO NEGATIVE (NEGATIVE); LEUKOCYTE ESTERASE, URINE AUTO 3+ (NEGATIVE); MUCUS, URINE SMALL (NEGATIVE); NITRITE, URINE AUTO NEGATIVE (NEGATIVE); PROTEIN, URINE AUTO NEGATIVE (NEGATIVE); RBC, URINE AUTO 1 /HPF (0-3); SPECIFIC GRAVITY URINE AUTO 1.003 (1.002-1.035); SQUAMOUS EPITHELIAL CELL UR AU 0 /HPF (0-6); UROBILINOGEN, URINE AUTO 0.2 mg/dL (0.0-2.0); WBC, URINE AUTO 75 /HPF (0-3)
== END ==
LOC: M LAB REF 12:24
PROVIDERS: ATTEND Physician Assistant
DX: N39.0 Urinary tract infection, site not specified (principal)

== ENCOUNTER 2023-11-26 08:28 | Emergency (ER) | payer OTHER ==
[~2023-11-26] VITALS: Ht 165.1 cm; Wt 74.1 kg
[~2023-11-26 08:28] MED LIST changes: -CEFD1CAP9 PO; -FLUC200T4; -NITR100C2; -PHEN-501
[2023-11-26] MEDS ORDERED: NITR100C2 (08:55)
[2023-11-26] MEDS ORDERED: PHEN-501 (08:55)
[2023-11-26] MEDS ORDERED: FLUC200T4 (08:55)
[2023-11-26] MEDS: METOCLOPRAMIDE INJ 10MG/2ML VIAL IV ONE (11:05)
[2023-11-26] MEDS: KETOROLAC 30 MG/ML 1ML VIAL IV ONE (11:05)
[2023-11-26] MEDS: NS 1,000 ML IV SCH (11:06)
[2023-11-26] MEDS: ACETAMINOPHEN *IV* 1,000 MG in IV 1 EA IV ONE (11:06)
[2023-11-26 11:11] LABS: BASO % 0.5 % (0.0-1.0); EOS % 0.3 % (0.0-3.0); HEMATOCRIT 41.3 % (36.0-47.0); HEMOGLOBIN 13.8 g/dl (12.0-15.5); LYMPH # 1.4 10^3/uL (1.5-5.0); LYMPH % 15.9 % (24.0-44.0); MEAN CORPUSCULAR HEMOGLOBIN 29.2 pg (27.0-33.0); MEAN CORPUSCULAR HGB CONC 33.4 g/dl (32.0-36.5); MEAN CORPUSCULAR VOLUME 87.5 fl (80.0-96.0); MONO # 0.4 10^3/uL (0.0-0.8); MONO % 4.3 % (2.0-8.0); NEUTROPHILS # 6.9 10^3/uL (1.5-8.5); NEUTROPHILS % 78.7 % (36.0-66.0); PLATELET COUNT, AUTOMATED 246 10^3/uL (150-450); RED BLOOD COUNT 4.72 10^6/uL (4.00-5.40); WHITE BLOOD COUNT 8.8 10^3/uL (4.0-10.0)
[2023-11-26 11:37] LABS: BLOOD UREA NITROGEN 11 MG/DL (9-23); CALCIUM LEVEL 9.1 MG/DL (8.5-10.1); CARBON DIOXIDE LEVEL 28 MMOL/L (20-31); CHLORIDE LEVEL 107 MMOL/L (98-107); CREATININE FOR GFR 0.65 MG/DL (0.55-1.30); GLOMERULAR FILTRATION RATE > 60.0 (>60); GLUCOSE, FASTING 92 MG/DL (60-100); POTASSIUM SERUM 4.1 MMOL/L (3.5-5.1); SODIUM LEVEL 139 MMOL/L (136-145)
[2023-11-26 11:50] LABS: HCG, SERUM QUALITATIVE NEGATIVE (NEGATIVE)
[2023-11-26] MEDS: cefTRIAXone SOD 1 GM in D5W MINI-BAG PLUS 50 ML IV ONE (14:15)
[2023-11-26] MEDS ORDERED: CEFD1CAP9 PO (14:27)
[2023-11-26 15:28] VITALS: BP 121/70; TEMP 98; O2SAT 98
== END 2023-11-26 15:40 | disposition home or self-care (01) ==
LOC: M ED 08:28
DX: N10 Acute pyelonephritis (principal); N83.01 Follicular cyst of right ovary; G43.909 Migraine, unspecified, not intractable, without status migrainosus; Z90.49 Acquired absence of other specified parts of digestive tract; Z79.2 Long term (current) use of antibiotics; Z79.899 Other long term (current) drug therapy
CPT/HCPCS: 74176; 80048; 81001; 84703; 85025; 87086; 96361; 96365; 96366; 96375; 99284; J0131; J0696; J1885; J2765

== ENCOUNTER → 2024-02-02 | Outpatient (REF) | payer OTHER ==
[~2024-02-02] MED LIST changes: +CEFD1CAP9 PO; +FLUC200T4; +NITR100C2; +PHEN-501
== END ==
LOC: M SFHCDERM 17:08
PROVIDERS: ATTEND Physician Assistant
DX: D48.9 Neoplasm of uncertain behavior, unspecified (principal)